=== PATIENT | male | born 1960 | race Caucasian/White ===

== ENCOUNTER 2017-04-27 06:48 | Emergency (ER) | payer OTHER ==
[~2017-04-27] VITALS: Ht 190.5 cm; Wt 66.8 kg
[~2017-04-27 06:48] MED LIST: DIVA500T5 PO; NRN/300 PO
[2017-04-27 06:54] VITALS: PULSE 87; TEMP 36.5; O2SAT 96; Ht 190.5 cm; Wt 66.8 kg
[2017-04-27] MEDS ORDERED: SODIUM CHLORIDE 0.9% 1000ML 1,000 ML IV STA (07:38)
[2017-04-27] MEDS ORDERED: ONDANSETRON INJ 2 MG/ML 2 ML VIAL IV STA (07:38)
[2017-04-27 08:03] LABS: BASO % 0.9 %; BASO ABS # 0.06 K/uL (0-0.2); COMPLETE YES; EOS % 5.8 %; HEMATOCRIT 39.4 % (42-52); IG% 0.2 %; LYMPH % 24.8 %; LYMPH ABS # 1.62 K/uL (1.2-3.4); MEAN CELL VOLUME 92.3 fL (80-100); MEAN CORPUSCULAR HEMOGLOBIN 32.3 pg (25-34); MEAN PLATELET VOLUME 9.5 fL (7.4-10.4); MONO % 7.5 %; NEUT % 60.8 %; PLATELET COUNT 136 K/uL (130-400); RED BLOOD COUNT 4.27 M/uL (4.7-6.1); WHITE BLOOD COUNT 6.52 K/uL (4.8-10.8)
[2017-04-27 08:25] LABS: BUN/CREATININE RATIO 16.6 (10-20); CALCIUM 9.2 mg/dl (8.5-10.1); CREATININE 0.62 mg/dl (0.60-1.40); POTASSIUM 3.3 mmol/L (3.5-5.1)
--- NOTE | 2017-04-27 08:32 | DIAGNOSTIC IMAGING REPORT ---
ABDOMEN FOR HERNIA CLINICAL HISTORY: Left inguinal hernia. COMPARISON STUDY: Left inguinal ultrasound October 21, 2015. FINDINGS: Note is made of a reducible fat-containing left inguinal hernia. No additional abnormalities were identified by sonography. IMPRESSION: Reducible fat-containing left inguinal hernia. Electronically signed by: Fabiano Chew M.D. 04/27/2017 8:31 AM Dictated Date/Time: 04/27/2017 8:24 AM
[2017-04-27 08:50] VITALS: BP 122/72
[2017-04-27 10:23] LABS: URINE APPEARANCE CLEAR (CLEAR); URINE BILIRUBIN NEG (NEG); URINE COLOR YELLOW; URINE EPITHELIAL CELL AUTO 0-5 /lpf (0-5); URINE NITRITE NEG (NEG); URINE PH 5.5 (4.5-7.5); URINE SPECIFIC GRAVITY 1.015 (1.000-1.030); UROBILINOGEN NEG (NEG); ZZUR CULT IF INDIC CLEAN CATCH NO
[2017-04-27 10:24] LABS: MANUAL MICROSCOPIC REQUIRED? NO; REVIEW REQ? NO
--- NOTE | 2017-04-27 10:40 | EMERGENCY ROOM VISIT NOTE ---
History Report prepared by Kileyibchin: Leyla Alexander Under the Supervision of: Dr. Hang Mcfarland D.O. (Hang Mcfarland D.O.) First contact with patient: 07:07 (Hang Mcfarland D.O.) Chief Complaint: OTHER COMPLAINT Stated Complaint: PAINS IN HERNIA History of Present Illness The patient is a 56 year old male who presents to the Emergency Room with complaints of waxing and waning left lower quadrant abdominal pain that began prior to arrival. He states that his pain ranges from a 6-10/10 in severity. The patient reports a history of a hernia that was diagnosed last year. He states that he was recommended to have surgery, but states that he has not had the surgery yet. The patient describes his pain as a tightness and cramping pain. He denies anything alleviating his pain, but states that standing and leaning forward worsens. The patient states that the hernia is reducible and reports pain with reducing. He states that he has had trouble sleeping due to the pain. The patient states that he has had pain with bowel movements, but states that his bowel movements are normal. He denies any fever, nausea, or vomiting. Source of History: patient Onset: prior to arrival Position: abdomen (LLQ) Symptom Intensity: 6-10/10 Quality: cramping, other (tightness) Timing: waxes/wanes Modifying Factors (Worsening): other (standing and leaning forward) Associated Symptoms: No fevers, No nausea, No vomiting (Hang Mcfarland D.O.) Review of Systems See HPI for pertinent positives & negatives. A total of 10 systems reviewed and were otherwise negative. (Hang Mcfarland D.O.) Past Medical & Surgical Medical Problems: (1) Acute Pancreatitis (2) Alcohol Abuse-Unspec (3) Bipolar Disorder, Unspecified (4) Cervicalgia (5) Migraine Unspecified W/O Intract Mgrn W/O Status Migrainosus (6) Schizophrenia Nos-Unspec (7) Tobacco Use Disorder Surgical Problems: (1) No significant past surgical history (Luis Richmond M.D.) Family History No significant family history (Hang Mcfarland D.O.) No significant family history (Luis Richmond M.D.) Social History Smoking Status: Never Smoker Alcohol Use: none Marital Status: single Housing Status: lives with significant other Occupation Status: employed (Hang Mcfarland D.O.) Current/Historical Medications No Active Prescriptions or Reported Meds Allergies Coded Allergies: No Known Allergies (Verified , 04/27/17) Physical Exam Vital Signs Date Time Temp Pulse Resp B/P (MAP) Pulse Ox O2 Delivery O2 Flow Rate FiO2 04/27/17 08:50 122/72 04/27/17 06:54 36.5 87 18 116/68 96 Room Air (Luis Richmond M.D.) Physical Exam CONSTITUTIONAL/VITAL SIGNS: Reviewed / noted above. GENERAL: Non-toxic in appearance. INTEGUMENTARY: Warm, dry, and [place]. HEAD: Normocephalic. EYES: without scleral icterus or trauma. ENT/OROPHARYNX: clear and moist. LYMPHADENOPATHY/NECK: Is supple without lymphadenopathy or meningismus. RESPIRATORY: Lungs clear and equal. CARDIOVASCULAR: Regular rate and rhythm. GI/ABDOMEN: No palpable hernia at this time, no tenderness to palpation of the inguinal area. Soft and nontender. No organomegaly or pulsatile mass. No rebound or guarding. Normal bowel sounds. EXTREMITIES: Warm and well perfused. BACK: No CVA tenderness. NEUROLOGICAL: Intact without focal deficits. PSYCHIATRIC: normal affect. MUSCULOSKELETAL: Normally developed with good muscle tone. (Hang Mcfarland D.O.) Medical Decision & Procedures ER Provider Diagnostic Interpretation: Radiology results as stated below per my review and radiologist interpretation: ABDOMEN FOR HERNIA CLINICAL HISTORY: Left inguinal hernia. COMPARISON STUDY: Left inguinal ultrasound October 21, 2015. FINDINGS: Note is made of a reducible fat-containing left inguinal hernia. No additional abnormalities were identified by sonography. IMPRESSION: Reducible fat-containing left inguinal hernia. Electronically signed by: Fabiano Chew M.D. 04/27/2017 8:31 AM Dictated Date/Time: 04/27/2017 8:24 AM (Hang Mcfarland D.O.) Laboratory Results 04/27/17 07:50 Red Blood Count 4.27, Mean Corpuscular Volume 92.3, Mean Corpuscular Hemoglobin 32.3, Mean Corpuscular Hemoglobin Concent 35.0, Mean Platelet Volume 9.5, Neutrophils (%) (Auto) 60.8, Lymphocytes (%) (Auto) 24.8, Monocytes (%) (Auto) 7.5, Eosinophils (%) (Auto) 5.8, Basophils (%) (Auto) 0.9, Neutrophils # (Auto) 3.96, Lymphocytes # (Auto) 1.62, Monocytes # (Auto) 0.49, Eosinophils # (Auto) 0.38, Basophils # (Auto) 0.06 04/27/17 07:50 Test 04/27/17 07:50 04/27/17 10:05 White Blood Count 6.52 K/uL (4.8-10.8) Red Blood Count 4.27 M/uL (4.7-6.1) Hemoglobin 13.8 g/dL (14.0-18.0) Hematocrit 39.4 % (42-52) Mean Corpuscular Volume 92.3 fL (80-100) Mean Corpuscular Hemoglobin 32.3 pg (25-34) Mean Corpuscular Hemoglobin Concent 35.0 g/dl (32-36) Platelet Count 136 K/uL (130-400) Mean Platelet Volume 9.5 fL (7.4-10.4) Neutrophils (%) (Auto) 60.8 % Lymphocytes (%) (Auto) 24.8 % Monocytes (%) (Auto) 7.5 % Eosinophils (%) (Auto) 5.8 % Basophils (%) (Auto) 0.9 % Neutrophils # (Auto) 3.96 K/uL (1.4-6.5) Lymphocytes # (Auto) 1.62 K/uL (1.2-3.4) Monocytes # (Auto) 0.49 K/uL (0.11-0.59) Eosinophils # (Auto) 0.38 K/uL (0-0.5) Basophils # (Auto) 0.06 K/uL (0-0.2) RDW Standard Deviation 47.9 fL (36.4-46.3) RDW Coefficient of Variation 14.2 % (11.5-14.5) Immature Granulocyte % (Auto) 0.2 % Immature Granulocyte # (Auto) 0.01 K/uL (0.00-0.02) Anion Gap 6.0 mmol/L (3-11) Est Creatinine Clear Calc Drug Dose 128.7 ml/min Estimated GFR () 130.3 Estimated GFR (Non- 112.5 BUN/Creatinine Ratio 16.6 (10-20) Calcium Level 9.2 mg/dl (8.5-10.1) Urine Color YELLOW Urine Appearance CLEAR (CLEAR) Urine pH 5.5 (4.5-7.5) Urine Specific [place] 1.015 (1.000-1.030) Urine Protein NEG (NEG) Urine Glucose (UA) NEG (NEG) Urine Ketones 1+ (NEG) Urine Occult Blood NEG (NEG) Urine Nitrite NEG (NEG) Urine Bilirubin NEG (NEG) Urine Urobilinogen NEG (NEG) Urine Leukocyte Esterase NEG (NEG) Urine WBC (Auto) 0 /hpf (0-5) Urine RBC (Auto) 0-4 /hpf (0-4) Urine Hyaline Casts (Auto) 0 /lpf (0-5) Urine Epithelial Cells (Auto) 0-5 /lpf (0-5) Urine Bacteria (Auto) NEG (NEG) (Luis Richmond M.D.) Laboratory results as stated above per my review. (Hagn Mcfarland D.Oralia.) Medications Administered Medications (Trade) Dose Ordered Sig/Lyla Route Start Time Stop Time Status Last Admin Dose Admin Sodium Chloride 1,000 ml @ 999 mls/hr Q1H1M STAT IV 04/27/17 07:38 04/27/17 08:38 DC 04/27/17 08:04 999 MLS/HR Ondansetron HCl (Zofran Inj) 4 mg NOW STAT IV 04/27/17 07:38 04/27/17 07:44 DC 04/27/17 08:04 4 MG (Luis Richmond M.D.) ED Course 0720: Previous medical records were reviewed. The patient was evaluated in room B7. A complete history and physical examination was performed by Dr. Richmond, Counter Checker. 0738: Ordered Zofran Inj 4 mg IV, Sodium Chloride 1000 ml @ 999 mls/hr IV. 0743: Previous medical records were reviewed. The patient was evaluated in room B7. A complete history and physical examination was performed. 1046: Dr. Richmond, PPG1 reevaluated the patient and he is resting comfortably. Dr. Richmond discussed the exam findings with him and he discussed the treatment plan. The patient verbalized complete understanding and agreement. The patient is ready for discharge. (Hang Mcfarland D.O.) Medical Decision Differential considered: pancreatitis, hepatitis, or acute cholecystitis, AAA, UTI, pyelonephritis, kidney stones, appendicitis, diverticulitis, shingles, bowel obstruction mesenteric ischemia, intussusception, hernia, testicular torsion. This is a 56-year-old male who presents to the ED with a chief complaint of left groin pain. The patient reports history of a inguinal hernia. The patient has normal vital signs. Physical exam did revealed a reducible left inguinal hernia without any inflammatory process or other acute abnormalities. Blood work was unremarkable. Urine did not show infection. Ultrasound reveals a reducible fat-containing left inguinal hernia. The patient was told the results of the test. He was told to follow-up with surgery. Referral provided. Of note, the patient had similar symptoms last year and never followed up despite recommendations to follow-up with surgery at least twice. (Hang Mcfarland D.O.) Medication Reconcilliation Current Medication List: was personally reviewed by me (Hang Mcfarland D.O.) Impression Primary Impression: Left inguinal hernia Scribe Attestation The scribe's documentation has been prepared under my direction and personally reviewed by me in its entirety. I confirm that the note above accurately reflects all work, treatment, procedures, and medical decision making performed by me. (Hang Mcfarland D.O.) Departure Information Dispostion Home / Self-Care Prescriptions No Active Prescriptions or Reported Meds Referrals No Doctor, Assigned (PCP) Clarita Daily MD Forms HOME CARE DOCUMENTATION FORM, IMPORTANT VISIT INFORMATION, WORK / SCHOOL INSTRUCTIONS Patient Instructions My [facility] Additional Instructions Mr. Frias you came today to the ED with abdominal pain. We did labs and imaging and determined that you are in stable condition. You did not have a high white blood count, your urine did not show signs of infection and you do not have a fever. The pain that your experiencing could be related to your hernia. The ultrasound that we performed showed fat in the hernia. This can cause some pain. You are at risk for complication if you do not get the hernia repaired. We are referring you to a surgeon to discuss options to correct the hernia. Please follow up if you experience severe symptoms.
--- NOTE | 2017-04-27 15:04 | EMERGENCY ROOM VISIT NOTE ---
History First contact with patient: 07:07 Chief Complaint: OTHER COMPLAINT Stated Complaint: PAINS IN HERNIA History of Present Illness The patient is a 56 year old male who presents to the Emergency Room with complaints of with a chief complaint of left groin pain. The patient has had the pain for several days. He states that he had similar symptoms over a year ago and was supposed to follow-up with surgery but did not. The patient states that his symptoms seem to be worse with leaning forward. He denies any fevers or chills. No urinary symptoms. No fevers. Review of Systems As above otherwise negative for 10 systems Past Medical/Surgical History Medical Problems: (1) Acute Pancreatitis (2) Alcohol Abuse-Unspec (3) Bipolar Disorder, Unspecified (4) Cervicalgia (5) Migraine Unspecified W/O Intract Mgrn W/O Status Migrainosus (6) Schizophrenia Nos-Unspec (7) Tobacco Use Disorder Surgical Problems: (1) No significant past surgical history Family History No significant family history Social History Smoking Status: Never Smoker Alcohol Use: none Marital Status: single Housing Status: lives with significant other Occupation Status: employed Current/Historical Medications No Active Prescriptions or Reported Meds Physical Exam Vital Signs Date Time Temp Pulse Resp B/P (MAP) Pulse Ox O2 Delivery O2 Flow Rate FiO2 04/27/17 08:50 122/72 04/27/17 06:54 36.5 87 18 116/68 96 Room Air Physical Exam CONSTITUTIONAL/VITAL SIGNS: Reviewed / noted above. GENERAL: Non-toxic in appearance. INTEGUMENTARY: Warm, dry, and [place]. HEAD: Normocephalic. EYES: without scleral icterus or trauma. ENT/OROPHARYNX: clear and moist. LYMPHADENOPATHY/NECK: Is supple without lymphadenopathy or meningismus. RESPIRATORY: Lungs clear and equal. CARDIOVASCULAR: Regular rate and rhythm. GI/ABDOMEN: Soft and nontender. No organomegaly or pulsatile mass. No rebound or guarding. Normal bowel sounds. EXTREMITIES: Warm and well perfused. The patient has a reducible left inguinal hernia. BACK: No CVA tenderness. NEUROLOGICAL: Intact without focal deficits. PSYCHIATRIC: normal affect. MUSCULOSKELETAL: Normally developed with good muscle tone. TRIAGE NURSING DOCUMENTATION REVIEWED. Medical Decision & Procedures Laboratory Results 04/27/17 07:50 Red Blood Count 4.27, Mean Corpuscular Volume 92.3, Mean Corpuscular Hemoglobin 32.3, Mean Corpuscular Hemoglobin Concent 35.0, Mean Platelet Volume 9.5, Neutrophils (%) (Auto) 60.8, Lymphocytes (%) (Auto) 24.8, Monocytes (%) (Auto) 7.5, Eosinophils (%) (Auto) 5.8, Basophils (%) (Auto) 0.9, Neutrophils # (Auto) 3.96, Lymphocytes # (Auto) 1.62, Monocytes # (Auto) 0.49, Eosinophils # (Auto) 0.38, Basophils # (Auto) 0.06 04/27/17 07:50 Test 04/27/17 07:50 04/27/17 10:05 White Blood Count 6.52 K/uL (4.8-10.8) Red Blood Count 4.27 M/uL (4.7-6.1) Hemoglobin 13.8 g/dL (14.0-18.0) Hematocrit 39.4 % (42-52) Mean Corpuscular Volume 92.3 fL (80-100) Mean Corpuscular Hemoglobin 32.3 pg (25-34) Mean Corpuscular Hemoglobin Concent 35.0 g/dl (32-36) Platelet Count 136 K/uL (130-400) Mean Platelet Volume 9.5 fL (7.4-10.4) Neutrophils (%) (Auto) 60.8 % Lymphocytes (%) (Auto) 24.8 % Monocytes (%) (Auto) 7.5 % Eosinophils (%) (Auto) 5.8 % Basophils (%) (Auto) 0.9 % Neutrophils # (Auto) 3.96 K/uL (1.4-6.5) Lymphocytes # (Auto) 1.62 K/uL (1.2-3.4) Monocytes # (Auto) 0.49 K/uL (0.11-0.59) Eosinophils # (Auto) 0.38 K/uL (0-0.5) Basophils # (Auto) 0.06 K/uL (0-0.2) RDW Standard Deviation 47.9 fL (36.4-46.3) RDW Coefficient of Variation 14.2 % (11.5-14.5) Immature Granulocyte % (Auto) 0.2 % Immature Granulocyte # (Auto) 0.01 K/uL (0.00-0.02) Anion Gap 6.0 mmol/L (3-11) Est Creatinine Clear Calc Drug Dose 128.7 ml/min Estimated GFR () 130.3 Estimated GFR (Non- 112.5 BUN/Creatinine Ratio 16.6 (10-20) Calcium Level 9.2 mg/dl (8.5-10.1) Urine Color YELLOW Urine Appearance CLEAR (CLEAR) Urine pH 5.5 (4.5-7.5) Urine Specific [place] 1.015 (1.000-1.030) Urine Protein NEG (NEG) Urine Glucose (UA) NEG (NEG) Urine Ketones 1+ (NEG) Urine Occult Blood NEG (NEG) Urine Nitrite NEG (NEG) Urine Bilirubin NEG (NEG) Urine Urobilinogen NEG (NEG) Urine Leukocyte Esterase NEG (NEG) Urine WBC (Auto) 0 /hpf (0-5) Urine RBC (Auto) 0-4 /hpf (0-4) Urine Hyaline Casts (Auto) 0 /lpf (0-5) Urine Epithelial Cells (Auto) 0-5 /lpf (0-5) Urine Bacteria (Auto) NEG (NEG) Medications Administered Medications (Trade) Dose Ordered Sig/Lyla Route Start Time Stop Time Status Last Admin Dose Admin Sodium Chloride 1,000 ml @ 999 mls/hr Q1H1M STAT IV 04/27/17 07:38 04/27/17 08:38 DC 04/27/17 08:04 999 MLS/HR Ondansetron HCl (Zofran Inj) 4 mg NOW STAT IV 04/27/17 07:38 04/27/17 07:44 DC 04/27/17 08:04 4 MG Medical Decision Differential considered: pancreatitis, hepatitis, acute cholecystitis, AAA, UTI , pyelonephritis, kidney stones, appendicitis, diverticulitis, shingles, bowel obstruction, mesenteric ischemia, intussusception,hernia, testicular torsion, ovarian torsion, ruptured ovarian cyst,ectopic , . Patient presents with a left inguinal hernia. It is no incarceration. Ultrasound shows a hernia. Blood work and urine were unremarkable. The patient was given referral to surgery. He is felt to be stable for discharge. Impression Primary Impression: Left inguinal hernia Departure Information Dispostion Home / Self-Care Condition FAIR Prescriptions No Active Prescriptions or Reported Meds Referrals No Doctor, Assigned (PCP) Clarita Daily MD Forms WORK / SCHOOL INSTRUCTIONS, HOME CARE DOCUMENTATION FORM, IMPORTANT VISIT INFORMATION Patient Instructions My [facility] Additional Instructions Mr. Frias you came today to the ED with abdominal pain. We did labs and imaging and determined that you are in stable condition. You did not have a high white blood count, your urine did not show signs of infection and you do not have a fever. The pain that your experiencing could be related to your hernia. The ultrasound that we performed showed fat in the hernia. This can cause some pain. You are at risk for complication if you do not get the hernia repaired. We are referring you to a surgeon to discuss options to correct the hernia. Please follow up if you experience severe symptoms.
== END 2017-04-27 10:59 | disposition home or self-care (01) ==
LOC: C.EDB 06:49
DX: K40.90 Unilateral inguinal hernia, without obstruction or gangrene, not specified as recurrent (principal); F10.10 Alcohol abuse, uncomplicated; F31.9 Bipolar disorder, unspecified; G43.909 Migraine, unspecified, not intractable, without status migrainosus; K85.90 Acute pancreatitis without necrosis or infection, unspecified